=== PATIENT | female | born 1980 | race Caucasian/White ===

== ENCOUNTER → 2016-11-20 | Day surgery (SDC) | payer OTHER ==
[~2016-11-20] VITALS: Ht 157.5 cm; Wt 147.9 kg
[~2016-11-20] MED LIST: ACETAMINOPHEN INTRAVENOUS 100 ML IV ONE; BUPIVACAINE-EPI 0.25%-1:200000 MPF 30 ML VIAL. ONE; CEFAZOLIN 1GM IVPB FOR OMNI 50 ML IV ONE; CEFAZOLIN 2GM PREMIX 50 ML IV ONE; CHOL100013 PO; DEXAMETHASONE SOD PHOS 20 MG/5 ML VIAL. ONE; FAMOTIDINE 20 MG/2 ML VIAL ONE; FENTANYL PF 100 MCG/2 ML VIAL. IV PRN; FENTANYL PF 100 MCG/2 ML VIAL. ONE; GLYCOPYRROLATE 1 MG/5 ML VIAL. ONE; IRON1TAB30 PO; IV RINGERS,LACTATED 1000ML 1,000 ML IV SCH; LIDOCAINE 1% 1 ML SYRINGE. ID PRN; LIDOCAINE 2% 100 MG/5 ML DISP.SYRIN. ONE; LISI10TA2 PO; MIDAZOLAM HCL/PF 2 MG/2 ML VIAL. IV PRN; MULT-208 PO; NEOSTIGMINE METHYLSULFATE 5 MG/5 ML SYRINGE. ONE; ONDANSETRON PF 4 MG/2 ML VIAL. ONE; OXYC-323 PO; OXYCODONE/APAP 5/325 TABLET. PO PRN; PROAIR HFA8.5 GM INH; PROPOFOL 20 ML IV ONE; ROCURONIUM 50 MG/5 ML VIAL. ONE; SEVOFLURANE > 120 MINUTES. IH ONE; SUCCINYLCHOLINE 200 MG/10 ML VIAL. ONE
[2016-11-20 10:32] LABS: NEG OBC UR NEG; POS OBC UR POS
[2016-11-20 10:59] LABS: BASO # 0.1 x10^3/uL (0.0-0.2); BASO % 1 % (0-3); EOS % 3 % (0-3); HEMATOCRIT 35.5 % (36.0-47.0); HEMOGLOBIN 11.4 g/dL (12.0-15.5); LYMPH # 1.7 x10^3/uL (1.0-4.8); LYMPH % 21 % (24-48); MEAN CORPUSCULAR HEMOGLOBIN 25 pg (25-35); MEAN CORPUSCULAR HGB CONC 32 g/dL (31-37); MEAN CORPUSCULAR VOLUME 77 fL (79-100); MONO % 5 % (0-9); NEUT % 70 % (31-73); PLATELET COUNT 303 x10^3/uL (140-400); RED BLOOD COUNT 4.59 x10^6/uL (3.50-5.40); RED CELL DISTRIBUTION WIDTH 17.5 % (11.5-14.5); WHITE BLOOD COUNT 8.3 x10^3/uL (4.0-11.0)
--- NOTE | 2016-11-20 12:54 | PDOC ---
BRIEF OPERATIVE NOTE Date: Nov 20, 2016 Pre-Op Diagnosis Large R ovarian cyst; menorrhagia, dysmenorrhea Post-Op Diagnosis same Procedure Performed R ovarian cystectomy; h/s w d/c and Novasure endometrial ablation, omentectomy- partial Surgeon Adriane Supervisor Blood none Anesthesiologist [place] Anesthesia Type: General Blood Loss 50cc IV Fluid see anesthesia report Urine Output see anesthesia Specimens Obtained R ovarian cyst wall, omentum, uterine curettings Findings see dictation Complications none YAJAIRA NG MD Nov 20, 2016 12:54
--- NOTE | 2016-11-20 12:56 | DISCH ---
DISCHARGE INSTRUCTIONS Condition on Discharge Condition on Discharge: Stable Activity After Discharge Activity Instructions for Disc: Activity as tolerated, Avoid exertion, Progressive ambulation Lifting Instructions after Dis: No heavy lifting Exercise Instruction after Dis: Progress as tolerated Driving Instructions after Dis: Do not drive today Weight Bearing Status after Di: Full weight bearing Diet after Discharge Diet after Discharge: Regular Wound Incision Care Wound/Incision Care: Ice to area for comfort Contacting the [facility] after DC Call your doctor for: If your condition worsens Follow-Up Follow up with: Dr. Ng in 1 week YAJAIRA NG MD Nov 20, 2016 12:56
[2016-11-20] MEDS: FENTANYL PF 100 MCG/2 ML VIAL. IV PRN ×2 (13:11→13:28)
[2016-11-20 14:50] VITALS: BP 164/79
--- NOTE | 2016-11-21 00:59 | OP ---
DATE OF SURGERY: 11/20/2016 PREOPERATIVE DIAGNOSES: This is a 36-year-old female who presents today for history of a very large ovarian cyst on the right side. In addition, she has diagnoses of menorrhagia and dysmenorrhea with an enlarged uterus seen on ultrasound. POSTOPERATIVE DIAGNOSES: This is a 36-year-old female who presents today for history of a very large ovarian cyst on the right side. In addition, she has diagnoses of menorrhagia and dysmenorrhea with an enlarged uterus seen on ultrasound. PROCEDURE: Operative laparoscopy with right ovarian cystectomy and I believe part of the tube was in there too, so salpingectomy and then hysteroscopy with D and C and NovaSure endometrial ablation. ESTIMATED BLOOD LOSS: Less than 50 mL. URINE OUTPUT AND FLUIDS: Please see the anesthesia summary. COMPLICATIONS: None. DESCRIPTION OF PROCEDURE: After informed consent was obtained, the patient was taken to the operating room and given a smooth induction of anesthesia without complications. Her abdomen, perineum and vagina were prepped and draped in the usual sterile fashion. Her legs had been placed in Wilfredo stirrups and a red Carter had been placed in the urethra and allowed to drain freely throughout the case. A bivalve speculum was placed in the vagina and the anterior lip of the cervix was grasped with a single tooth tenaculum. The Valtchev was placed through the cervical os and attached to the tenaculum. We went slightly above the umbilicus to make a 5 mm incision. The bladeless trocar was placed down through this incision and the camera confirmed good trocar placement. The first thing we noticed in front of us was an umbilical hernia with some omental fat in it. A 5 mm port was placed on the right side under direct visualization and after we placed this, we were able to use the LigaSure to tease the fat out of the umbilical hernia. Prior to that, we, as we dissected it, ended up having an artificial hole kind of in the center of it, so we did excise part of the omentum so that she would not develop a bowel strangulation or something later through this by wrapping around the omentum. We placed a Bunny to the cul-de-sac and turned our attention to the large cyst coming off the right ovary. This actually appeared to be attached to the edge of the right ovary, so it was our original plan that we might have to take the ovary, but we decided at this point, we did not need to do that. We used the LigaSure down the right-sided port to create an incision in the wall of the cyst. We then drained as much fluid as we could out of the cyst at that time. A 10 mm port was placed on the left side at this point and used to help with traction and dissection. We used the LigaSure to cauterize across the attachment of the wall of the cyst to the ovary, on the inferior side of the ovary. Once this was free, we were able to get better delineation of where the cyst was coming from. The cyst did appear to be attached to part of the tube as well, but everything was so inflated and distorted it was somewhat difficult to tell. We did visualize the ureter along the pelvic brim going down to the pelvis and we made sure that we could see this before we came across the superior portion of the cyst. The cyst was dissected as much as we could off the ovary and was excised from its attachments near the infundibulopelvic ligament. It did appear that the infundibulopelvic ligament remained intact and continued to perfuse the ovary. We had quite a bit of time to observe the ovary during this time and it did not appear to have any compromised blood flow to it. Once the cyst was completely free, we placed an EndoCatch bag down the 10 port and placed the cyst and a piece of omentum into the bag. The bag was brought to the surface and the tissue was removed. At this point, we used a PMI suture with an 0 Vicryl in it to close the defect in the fascia. This was closed and noted to be airtight. At this point, we turned our attention back to the ovary again. The ovary was white and healthy appearing. There was no active bleeding from the sites where we had taken the cyst off. We did spray ____ this area to help with any potential oozing, but there was not any active bleeding. At this point, the port sites were removed and under direct visualization, no bleeding was noted. The size 10 port was closed with a subcuticular stitch and the other ports were closed with an interrupted suture of 4-0 nylon. I then went down to do the hysteroscopy and D and C and placed the patient's legs in high lithotomy. I placed a speculum in the vagina and removed the uterine manipulator. I then dilated the cervix to accommodate the hysteroscope. Hysteroscopy revealed some fluffy endocervical and lower uterine segment tissue, but not a lot up in the upper cavity of the uterus ____ were noted. At this point, we were able to do the D and C ____ moderate amount of tissue. This tissue was sent to the lab. We then took the measurements for the NovaSure. The functional length was 6 and the width was 3.3. We set the machine to these measurements and then did a cavity check and had the assessment. It then went into a 90-second burn cycle. At the end of the burn cycle, the instruments were removed and the tenaculum and speculum were removed as well. At this point, the procedure was terminated. There were no complications. The patient tolerated the procedure well. YAJAIRA NG MD DR: ABY/betty JOB#: [id number] / [id number]
--- NOTE | 2016-11-24 15:20 | PATHOLOGY ---
PATHOLOGY REPORT * * * * * * * * FINAL DIAGNOSIS: A. Fallopian tube and ovary, right ovarian cystectomy: - Serous cystadenoma. Segment of omentum, excision: - Negative for tumor. B. Endometrial curettings: - Proliferative endometrium. - Endometrial polyp. COMMENT: There is no evidence of malignancy. (JPM:; d/t: 11/24/16) REPORT ELECTRONICALLY SIGNED BY: Woody Scott M.D. DATE/TIME: 11/24/2016 15:20 * * * * * * * * GROSS PATHOLOGY: A. The specimen is received in formalin labeled "Lorin Hoyt, right ovarian cyst and omentum". Received is a 71 g previously ruptured segments of pink-durham, fibromembranous tissue measuring 14.8 x 11.2 x 3.5 cm in greatest dimensions with an attached fimbriated fallopian tube measuring 3.8 cm in length by 0.8 cm in diameter. Sectioning reveals the cyst wall to be smooth to cerebriform in appearance. No distinct nodules or lesions are noted grossly. Normal ovarian stroma is not grossly identified. The specimen is submitted representatively in cassettes A1 through A3. Also received within the specimen container is a segment of yellow-durham omentum measuring 14.8 x 4.3 x 2.4 cm in greatest dimensions. Sectioning reveals yellow-durham, lobulated cut surfaces with no grossly distinct nodules or lesions. The specimen is submitted representatively in cassette A4. B. Received in formalin labeled "Lorin Hoyt, endometrial," are several segments of red-durham membranous tissue admixed with blood coagulum measuring 3.5 x 3.0 x 0.8 cm in aggregate dimensions. The specimen is submitted entirely in cassette B1 and B2. (CAA; 11/21/2016) INITIAL CPT CODE(S): A; 82941 B; 61536 Professional services performed by [facility] at [address] [address] Technical services performed by [facility] at [address] [place] [address], [address], [place] [address]. SPECIMEN(S) RECEIVED: A.Right ovarian cyst and omentum B.Endometrial curettings CLINICAL HISTORY: Menorrhagia, right ovarian cyst PATIENT: LORIN HOYT /AGE: 501/13/1980 (Age: 36) PATIENT #: [id number] ALT CASE #: SPECIMEN COLLECTION DATE: 11/20/2016 SPECIMEN RECEIVED DATE: 11/20/2016 [facility] - [id number] [place] [address] - PHONE: [phone] * * * END OF REPORT * * *
== END ==
LOC: SURG 09:45
PROVIDERS: ATTEND Obstetrics & Gynecology
DX: N83.201 Unspecified ovarian cyst, right side (principal); N85.2 Hypertrophy of uterus
CPT/HCPCS: 36415; 58563; 58662; 81025; 85027; J0131; J0330; J0690; J1100; J2405; J2704; J2710; J3010; J3490; S0028; C1769; C1782; J7030; J7120